=== PATIENT | male | born 1965 | race Two or more races ===

== ENCOUNTER 2024-01-16 22:35 | Emergency (ER) | payer MEDICARE, SELFPAY ==
[2024-01-16 22:36] VITALS: BP 152/96; PULSE 73; RESP 18; TEMP 36.5; O2SAT 98
--- NOTE | 2024-01-16 23:21 | PC.NURSE ---
Pt to room 18, requesting to keep green shirt on underneath gown, all other belongings placed in locker #5. Pt wanded by security [place].
--- NOTE | 2024-01-16 23:31 | PD.EDADULT ---
ED General RME/HPI General Chief complaint: Psychiatric Symptoms Stated complaint: VOLUNTARY MENTAL HEALTH EVALUATION Time Seen by Provider: 01/16/24 23:34 Arrival date/time: 01/16/24 22:35 RME / HPI RME / HPI narrative: Dr. Recinos?s Main ED Evaluation: 58yo male KATHERIN presents to the ED requesting a psychiatric evaluation. Patient states he is homeless and just wants to talk to crisis and just wants to make sure I don't do anything . He is not on a psychiatric hold. No further history reported at this time. Review of Systems Review of Systems Systems Reviewed: All systems reviewed, normal except as documented Narrative Review of Systems: Gen: No fever, no chills, no weight loss EYES: No discharge, no visual changes, no pain HEENT: No ear pain, no congestion, no sore throat PULM: No shortness of breath, no cough, no congestion CV: No chest pain, no dyspnea on exertion, no palpitations GI: No nausea, no vomiting, no diarrhea, no pain, no constipation : No frequency, no urgency, no dysuria Musc/skel: No joint pain, no back pain Skin: No rash Psyc: No hallucinations, no depression Heme/Lymph: No easy bleeding or bruising tendencies Neuro: No weakness, no headache Past Medical History Social History SMOKING STATUS: Former smoker ED Exam Narrative Physical exam: GENERAL APPEARANCE: alert and oriented x 4, well-developed, well-nourished, disheveled, no acute distress VITALS: All vitals were reviewed and the pulse ox is 98% on room air, which is normal according to my interpretation. HEENT: normocephalic, atraumatic NECK: supple LUNGS: no respiratory distress, normal effort HEART: good peripheral perfusion ABDOMEN: non distended EXTREMITIES: atraumatic NEUROLOGIC: awake; alert and oriented x4; cranial nerves II-XII grossly intact PSYCHIATRIC: appropriate mood and affect SKIN: warm, dry, normal color; no rashes Course Course Course Narrative: Patient is medically clear for crisis evaluation. 0600: Care signed out to the next oncoming provider. Past medical, surgical, social and family history reviewed. Vitals and home medications reviewed. Results and treatment plan discussed. They will assume the care of the patient at this time and will follow the patient, pending crisis evaluation. Quality Measures none Orders Category Date Time Status Transfer to another facility [Transfer/Discharge] Stat Discharge 01/17/24 10:22 Active Acetaminophen Stat Lab 01/17/24 07:27 Completed Alcohol, Urine Stat Lab 01/16/24 23:26 Completed CBC Stat Lab 01/17/24 07:27 Completed CMP [Comprehensive Metabolic Panel] Stat Lab 01/17/24 07:27 Completed Drug Screen,Urine Stat Lab 01/16/24 23:26 Completed Magnesium Stat Lab 01/17/24 07:27 Completed Salicylate Stat Lab 01/17/24 07:27 Completed Albuterol/Ipratr Rt Olga Lidia [Duoneb Rt Olga Lidia] Med 01/17/24 08:53 Discontinued 3 ml INH X1 ONE Late Tray Request Routine Oth 01/17/24 07:45 Active Vital Signs Vital signs: Vital Signs Temperature 97.7 F 01/16/24 22:36 Pulse Rate 73 01/16/24 22:36 Respiratory Rate 18 01/16/24 22:36 Blood Pressure 152/96 H 01/16/24 22:36 Pulse Oximetry (%) 98 01/16/24 22:36 Oxygen Delivery Method Room Air 01/16/24 22:36 Pulse ox is 98% on room air, which is normal according to my interpretation. MDM Patient data External records reviewed:: [facility] previous records (Per chart review, patient has no previous ED visits or admissions to this facility.) Clinical information provided by:: patient Social determinants that could affect healthcare access:: none Patient has the following chronic illnesses:: none How is presenting disease/condition affected by chronic disease/condition?: no chronic disease Evaluation data The following diagnostics were reviewed and interpreted by me:: lab results Lab and/or radiology exams considered but not ordered:: none Interpretation Summary: Urine alcohol is negative, UDS is negative, according to my interpretation. Medications Medications considered but not ordered:: none Medication administrations:: Medication Administration History Discontinued Medications Albuterol/Ipratropium (Albuterol/Ipratropium (Duoneb) Rt Olga Lidia 3 Ml Nebu) 3 ml INH X1 ONE Stop: 01/17/24 08:54 Last Admin: 01/17/24 09:17 Dose: 3 ml Documented By: RG see above, if any Consultations Consultation(s) initiated? (list below): No Diagnosis Differential Diagnosis ED Complaint MDM: SI, hallucinations, drug abuse Most likely diagnosis given after review of the tests above:: see below Admission Indicated Admission indicated?: not indicated Explain why admission is indicated or not indicated:: Admission criteria not met. Admission Request Was there a request for admission?: No Disposition Plan Disposition Plan: other (specify) (Signed out to the next oncoming provider at 0600 pending crisis evaluation.) Medical Decision Making MDM Narrative MDM Narrative: Scribe Attestation: 01/16/24 Peyton Crisostomo am scribing for and in the presence of Dr. Recinos. Differential Diagnosis Differential Diagnosis: SI, hallucinations, drug abuse Lab Data 01/17/24 07:27 01/17/24 07:27 Labs: Lab Results 01/16/24 01/17/24 Range/Units 23:26 07:27 WBC 5.6 (3.8-10.6) Thou/mm3 RBC 4.54 (4.50-5.90) Miln/mm3 Hgb 12.9 L (13.5-16.0) g/dL Hct 39.6 L (41.0-53.0) % MCV 87 (80-100) fL MCH 28.4 (25.0-35.0) pg MCHC 32.6 (31.0-37.0) g/dl RDW Std Deviation 46.4 H (35.1-43.9) fL Plt Count 276 (140-440) Thou/mm3 Neut % (Auto) 42 (37-80) % Lymph % (Auto) 21 (10-50) % [place] % (Auto) 11 (0-12) % Eos % (Auto) 25 H (0-10) % Baso % (Auto) 1 (0-2.5) % Neut # (Auto) 2.4 (1.8-7.7) Thou/mm3 Lymph # (Auto) 1.2 (1.0-4.8) Thou/mm3 [place] # (Auto) 0.6 (0.0-0.8) Thou/mm3 Eos # (Auto) 1.4 H (0.0-0.5) Thou/mm3 Baso # (Auto) 0.1 (0.0-0.2) Thou/mm3 Immature Gran # (Auto) 0.01 H (0.00-0.00) Thou/mm3 Absolute Nucleated RBC 0.00 (0.00-0.00) Thou/mm3 Immature Gran % 0 (0-0) % Nucleated RBC % 0 (0) /100 WBC Sodium 140 (136-145) mMol/L Potassium 4.2 (3.4-5.1) mMol/L Chloride 105 (98-107) mMol/L Carbon Dioxide 31.5 H (20.0-31.0) mMol/L Anion Gap 4 L (7-16) BUN 10 (9-23) mg/dL Creatinine 0.8 (0.6-1.3) mg/dL Estim Creat Clear Calc 101.9 (>60) mL/min eGFR > 60 (60 - ) See Note BUN/Creatinine Ratio 13 (12-20) Ratio Glucose 99 (74-106) mg/dL Calculated Osmolality 278 (275-295) Calcium 9.1 (8.3-10.6) mg/dL Corrected Calcium 9.1 (8.5-10.1) mg/dL Magnesium 2.0 (1.6-2.6) mg/dL Total Bilirubin 0.8 (0.3-1.2) mg/dL AST 17 (0-34) U/L ALT 23 (10-49) U/L Alkaline Phosphatase 85 (46-116) U/L Total Protein 6.3 (5.7-8.2) gm/dL Albumin 4.0 (3.5-5.0) gm/dL Globulin 2.3 (2.3-3.5) gm/dL Albumin/Globulin Ratio 1.7 (1.2-2.2) Salicylates < 3.0 mg/dL Urine Opiates Screen Negative (Negative) Urine Fentanyl Screen Negative (Negative) Acetaminophen < 2.0 L (10.0-20.0) mcg/mL Ur Barbiturates Screen Negative (Negative) U Amphetamin/Meth Scrn Negative (Negative) U Benzodiazepines Scrn Negative (Negative) U Cocaine Metab Screen Negative (Negative) U Marijuana (THC) Screen Negative (Negative) Urine Alcohol Negative (Negative) Discharge Plan Plan Patient Disposition: [facility] Disposition Comment: gem linhannika Prescriptions/Referrals Referrals: No Primary/Family,Physician [Primary Care Provider] - In 1 week Problem List Clinical Impression: Suicidal ideation, Psychosis Patient/Caregiver Discharge Instructions Print Language: Hungarian Stand Alone Forms: Sherrell Award Info., Patient Portal Info Letter
[2024-01-16 23:58] VITALS: PULSE 72; RESP 19; O2SAT 97; BMI 26.7
[2024-01-17 00:55] LABS: Alcohol, Urine Negative (Negative); Amphetamine/Methamp Scrn,U Negative (Negative); Barbiturate Screen,Urine Negative (Negative); Benzodiazepines Screen,Urine Negative (Negative); Benzoylecgonine Screen, Ur Negative (Negative); Fentanyl Screen,Urine Negative (Negative); Opiate Screen,Urine Negative (Negative); THC Screen,Urine Negative (Negative)
[2024-01-17 06:26] VITALS: BP 131/61; PULSE 82; RESP 17; TEMP 36.8; O2SAT 99
--- NOTE | 2024-01-17 07:25 | PC.NURSE ---
Pt resting w/eyes closed, even rise and fall of chest. Sitter remains in place.
[2024-01-17 07:44] LABS: Basophils # (Auto) 0.1 Thou/mm3 (0.0-0.2); Basophils % (Auto) 1 % (0-2.5); Eosinophils # (Auto) 1.4 Thou/mm3 (0.0-0.5); Eosinophils % (Auto) 25 % (0-10); Hematocrit 39.6 % (41.0-53.0); Hemoglobin 12.9 g/dL (13.5-16.0); Immature Granulocytes % (Auto) 0 % (0-0); Immature Granulocytes Auto 0.01 Thou/mm3 (0.00-0.00); Lymphocytes # (Auto) 1.2 Thou/mm3 (1.0-4.8); Lymphocytes % (Auto) 21 % (10-50); Mean Corpuscular HGB Conc 32.6 g/dl (31.0-37.0); Mean Corpuscular Hemoglobin 28.4 pg (25.0-35.0); Mean Corpuscular Volume 87 fL (80-100); Monocytes # (Auto) 0.6 Thou/mm3 (0.0-0.8); Monocytes % (Auto) 11 % (0-12); Neutrophils # (Auto) 2.4 Thou/mm3 (1.8-7.7); Neutrophils % (Auto) 42 % (37-80); Nucleated Red Blood Cell % 0 /100 WBC (0); Platelet Count 276 Thou/mm3 (140-440); RDW Standard Deviation 46.4 fL (35.1-43.9); Red Blood Count 4.54 Miln/mm3 (4.50-5.90); White Blood Count 5.6 Thou/mm3 (3.8-10.6)
[2024-01-17 08:08] VITALS: BP 164/86; PULSE 79; RESP 17; TEMP 37.1; O2SAT 99
--- NOTE | 2024-01-17 08:14 | PC.NURSE ---
PT NOW STATING THAT HE DOES HAVE SOME SI THOUGHTS, STILL HAS THEM AND THAT HE IS HAVING VISUAL AND AUDITORY HALLUCINATIONS.
[2024-01-17 08:33] LABS: Acetaminophen < 2.0 mcg/mL (10.0-20.0); Alanine Aminotransferase 23 U/L (10-49); Albumin/Globulin Ratio 1.7 (1.2-2.2); Alkaline Phosphatase 85 U/L (46-116); Anion Gap 4 (7-16); Aspartate Amino Transferase 17 U/L (0-34); BUN/Creatinine Ratio 13 Ratio (12-20); Bilirubin,Total 0.8 mg/dL (0.3-1.2); Blood Urea Nitrogen 10 mg/dL (9-23); Calcium 9.1 mg/dL (8.3-10.6); Calcium (Corrected) 9.1 mg/dL (8.5-10.1); Carbon Dioxide 31.5 mMol/L (20.0-31.0); Chloride 105 mMol/L (98-107); Creatinine (Component) 0.8 mg/dL (0.6-1.3); Estimated Creatinine Clearance 101.9 mL/min (>60); Globulin 2.3 gm/dL (2.3-3.5); Glucose 99 mg/dL (74-106); Osmolality,Calculated 278 (275-295); Potassium 4.2 mMol/L (3.4-5.1); Salicylate < 3.0 mg/dL; Sodium 140 mMol/L (136-145); Total Protein 6.3 gm/dL (5.7-8.2); eGFR > 60 See Note
--- NOTE | 2024-01-17 08:33 | PC.NURSE ---
PT REQUEST TO SPEAK TO THIS RN, PT REPORTS HE IS NOW HAVING AUDITORY HALLUCINATIONS MORE. ONE VOICE TOLD HIM TO SLOW DOWN. THEN ANOTHER VOICE BEGAN DEMANDING HE KILL HIMSELF REPEATEDLY.
--- NOTE | 2024-01-17 08:52 | PC.NURSE ---
PT REQUESTED BREATHING TREATMENT, PROVIDER AWARE, WILL PUT IN AN ORDER.
--- NOTE | 2024-01-17 09:00 | PC.CC ---
Patient is a 58 year-old male BIBA for mental health evaluation. Margaret met with patient [id number] to complete assessment. ASW introduced self, role, and reason for assessment. ASW disclosed limits of confidentiality as well. Patient appeared alert and oriented to self, place, and situation. Patient presented unkempt and disheveled. Patient?s speech was rapid with disorganized thought process. Patient appeared to be having active command auditory hallucinations as he stated ?A deep voice is telling me to kill myself over and over.? Patient reports he continues to have suicidal ideations with plan to overdose on his medication. The patient denied past suicide attempts and reported the last time he was on [id number] was in 2010. The patient reports he is having visual hallucinations as he is seeing doubles and a person he followed to [facility] that he is unsure actually existed. Patient was unable to provide further information to the person he followed and stated, ?The person disappeared on me.? Patient reports he pulled over at the [place] but does not recall which one and called the Crisis Hotline who called the ambulance for him. Patient reports he has mental health history of Schizophrenia, Major Depressive Disorder, and Extreme Stress Disorder. Patient does take medication; however was unable to provide medication name, but reports to being compliant. Patient is connected to mental health with [facility] in [place] and is seen by a psychiatrist. Patient uses methamphetamine but reported he stopped using approximately a month ago. Upon clinical consultation with [facility], Katy Gordon patient will be placed on a 5150-Hold for Danger to Self. Patient is unable/unwilling to provide a viable safety plan. ASW provided Advisement to Patient of 5150-Hold. Dr. Blackmon, oven tender bagels Sara, and [place] Mary were provided with update and discharge plan. ASW sent referral to [facility] Facilities for placement via [facility].
[2024-01-17] MEDS: ALBUTEROL/IPRATROPIUM (Duoneb) RT SOL 3 ML NEBU INH (09:17)
[2024-01-17 09:19] VITALS: PULSE 85; RESP 18; O2SAT 97
--- NOTE | 2024-01-17 09:51 | PC.NURSE ---
Spoke w/Em and Emily from [facility], pt accepted to unit [address] Rojas.
--- NOTE | 2024-01-17 09:58 | PC.CC ---
Patient has been accepted to [facility] by Dr. Schaefer, Unit [address]. Dr[address] Blackmon, package pick up Sara, and [place] Mary have been provided with update. Patient was provided with accepting information. Yuko Herrera arranging transportation.
--- NOTE | 2024-01-17 10:01 | EDNOTE_ITS ---
Emergency Room Addendum <Marah Orona - Last Filed: 01/17/24 10:21> Addendum Narrative: 0600: Care assumed from Dr. Recinos, the previous shift emergency physician. Past medical, surgical, social and family history reviewed. Vitals and home medications reviewed. I will assume the care of the patient at this time, pending mental health evaluation. Please refer to the emergency department record for history and examination from initial visit.? Nursing notes reviewed by me. Vital signs reviewed by me. [place] medical records reviewed by me. 0900: Notified by our ASW Yuko that the patient has been evaluated and placed on a hold by our HYDRAULIC OIL TOOL OPERATOR. At this time pending placement to [facility] facility. Patient has been accepted by Dr. Schaefer at [facility]. EMS p/u time 11:00 am. <Mart Blackmon MD - Last Filed: 01/17/24 10:28> Addendum Narrative: At 6 AM on 01/17/2024, the care of the patient was transferred to [facility] by Dr. RECINOS, see her notes for complete H&P and ED course. Home blood and urine test unremarkable. Patient is medically cleared. Our ED Business Support arranged transfer to [facility], Dr. Schaefer is the accepting physician. During my watch, the patient remained stable. Mart Blackmon MD
[2024-01-17 10:35] VITALS: BP 146/78; PULSE 68; RESP 17; TEMP 37.2; O2SAT 97
[2024-01-17 10:53] VITALS: BP 160/80; PULSE 71; RESP 18; TEMP 37.1; O2SAT 99
== END 2024-01-17 10:50 ==
PROVIDERS: Emergency Medicine; Emergency Provider Emergency Medicine
DX: Z00.8 Encounter for other general examination (principal); R45.851 Suicidal ideations; F29 Unspecified psychosis not due to a substance or known physiological condition; Z59.00 Homelessness unspecified
CPT/HCPCS: 36415; 80053; 80307; 80320; 80329; 83735; 85025; 90839; 94640; 96127; 99285; A9270; G0480